=== PATIENT | male | born 1945 | race Caucasian/White ===

== ENCOUNTER → 2020-04-01 | Outpatient (CLI) | payer OTHER ==
--- NOTE | 2020-04-01 14:05 | RAD ---
EXAM: CT Head without IV contrast INDICATION: Reason: HEADACHE / Spl. Instructions: / History: TECHNIQUE: Multi-detector row CT images were obtained of the head without the use of IV contrast. All CT scans performed at this facility utilize dose optimization techniques as appropriate to the exam, including the following: Automated exposure control and adjustment of the mA and/or KV according to patient size (this includes techniques or standardized protocols for targeted exams where dose is indication/reason for exam). COMPARISON: None FINDINGS: BRAIN PARENCHYMA: No evidence of acute intraparenchymal hemorrhage or mass effect. There is loss of diana-white differentiation in the posterior insula, and in the right right temporal lobe extending posteriorly into the right parietal lobe, associated with low density compatible with an acute to subacute infarct. This measures 5 cm anterior-posterior, 4.9 cm craniocaudal and 3.8 cm mediolateral. There is scattered white matter low density compatible chronic ischemic microvascular change and mild parenchymal volume loss. VENTRICLES & EXTRA-AXIAL SPACES: Ventricles are within normal limits. Basilar cisterns are patent. No pathologic extra-axial fluid collection or mass. ORBITS: Orbital contents are unremarkable. SINUSES: Visualized paranasal sinuses and mastoid air cells are clear. OSSEOUS & SOFT TISSUES: Calvarium and skull base are intact. 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 CT angiography of the head and neck could be pursued in further evaluation. Stroke center referral recommended. FOR INTERNAL CODING PURPOSES Critical result: Findings discussed with SRIDEVI MARROQUIN at 04/01/2020 1:58 PM. RESULT CODE: (C) Electronically signed by: Saundra Sylvester MD (04/01/2020 2:02 PM) [id number]
== END | disposition home or self-care (01) ==
LOC: CT 13:06
PROVIDERS: ATTEND Physician Assistant
DX: I63.89 Other cerebral infarction (principal)
CPT/HCPCS: 70450

== ENCOUNTER → 2021-11-02 | Outpatient (CLI) | payer OTHER ==
--- NOTE | 2021-11-02 15:11 | RAD ---
EXAMINATION: US DPLX VENOUS EXTREMITY LOWER RT, 11/02/2021 11:16 AM CLINICAL INDICATION: Right lower extremity redness and swelling, history of DVT and PE. COMPARISON: None Available. PROCEDURE: Multiple grayscale, color Doppler and spectral Doppler sonographic images of the right low er extremity were obtained. FINDINGS: There is no evidence of deep venous thrombosis in the right lower extremity. The right comm on femoral, femoral and popliteal veins are echolucent with normal flow on color Doppler imaging. The veins are fully compressible and show normal phasicity and reaction to augmentation. The calf veins are suboptimally visualized due to skin thickening and subcutaneous edema. IMPRESSION: No evidence of deep venous thrombosis in the right lower extremity. Suboptimal evaluation of calf veins due to skin thickening and subcutaneous edema. Electronically signed by: Florence Quinteros MD (11/02/2021 3:08 PM) [id number]
== END ==
LOC: US 11:11
PROVIDERS: ATTEND Nurse Practitioner Family
DX: R22.41 Localized swelling, mass and lump, right lower limb (principal); I26.99 Other pulmonary embolism without acute cor pulmonale; Z86.718 Personal history of other venous thrombosis and embolism
CPT/HCPCS: 93971

== ENCOUNTER 2021-11-05 15:04 | Emergency (ER) | payer OTHER ==
[~2021-11-05] VITALS: Ht 167.6 cm; Wt 150.0 kg
--- NOTE | 2021-11-05 15:19 | PHYS DOC ---
General Adult EDM: Chief Complaint: UPPER EXTREMITY SWELLING HPI: HPI: 76-year-old male [facility]. The patient recently had a fall and was evaluated including lower extremity ultrasounds. There were no acute findings. No DVT. The gagan ent is already on Coumadin. He presents today because the home health person came and noticed that his left forearm was more swollen and they wanted him to get an ultrasound, so he/she called an ambulance. Patient has no new symptoms or complaints. He has a PICC line for which she is getting multiple medications and he is not sure why. Review of Systems: Review of Systems: Constitutional: Denies fever or chills Eyes: Denies change in visual acuity HENT: Denies nasal congestion or sore throat Respiratory: Denies cough or shortness of breath Cardiovascular: Denies chest pain or edema GI: Denies abdominal pain, nausea, vomiting, bloody stools or diarrhea : Denies dysuria Musculoskeletal: Denies back pain or joint pain Integument: Denies rash Neurologic: Denies headache, focal weakness or sensory changes Endocrine: Denies polyuria or polydipsia Lymphatic: Denies swollen glands Psychiatric: Denies depression or anxiety Allergies: Allergies: Allergies Coded Allergies Type Severity Reaction Last Updated Verified Penicillins Allergy Unknown 11/05/21 Yes amoxicillin Allergy Unknown 11/05/21 Yes Physical Exam: PE: Constitutional: Well developed, well nourished, morbidly obese, no acute distress, non-toxic appearance. [] HENT: Normocephalic, atraumatic, bilateral external ears normal, oropharynx moist, no oral exudates, nose normal. [] Eyes: PERRLA, EOMI, conjunctiva normal, no discharge. [] Neck: Normal range of motion, no tenderness, supple, no stridor. [] Cardiovascular:Heart rate regular rhythm, no murmur [] Lungs & Thorax: Bilateral breath sounds clear to auscultation [] Abdomen: Bowel sounds normal, soft, no tenderness, no masses, no pulsatile masses. [] Skin: Multiple areas of ecchymosis on the upper and lower extremities bilaterally, PICC line right upper arm. [] Back: No tenderness, no CVA tenderness. [] Extremities: Left forearm with scattered ecchymosis, larger diameter than right [] Neurologic: Alert and oriented X 3, normal motor function, normal sensory functi on, no focal deficits noted. [] Psychologic: Affect normal, judgement normal, mood normal. [] EKG: EKG: [] Radiology/Procedures: Radiology/Procedures: [] Impressions: XR SHOULDER_LEFT 2+ VIEWS 11/05/2021 5:02 PM INDICATION: Left shoulder pain COMPARISON: None available. TECHNIQUE: 3 views of the left shoulder are provided. 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 No lucency surrounding the hardware. There is no acute fracture or dislocation. Joint spaces are maintained. Bone mineralization is within normal limits. Regional soft tissues are within normal limits. There is no soft tissue gas or osseous erosion. No radiopaque foreign body. Electronically signed by: Larissa Ojeda MD (11/05/2021 5:29 PM) [facility] DICTATED AND SIGNED BY: LARISSA OJEDA MD DATE: 11/05/211725 CC: CHANI GALINDO DO; NON,STAFF ~ Left upper Extremity Venous Doppler Ultrasound History: Reason: Recent fall, left forearm swelling / Spl. Instructions: / History: Comparison: None Procedure: Color flow, duplex, spectral analysis and 2D images are obtained with and without compression in the area of the deep and superficial venous structures of the upper , specifically the axillary, brachials, radial and ulnar deep veins and the superficial basilic and cephalic veins. Color Doppler and venous waveform analysis was also applied to the left jugular and subclavian vein. Findings: There is normal duplex flow, color flow and compressibility of all visualized vein segments. No evidence of deep venous thrombus is present. Impression: Normal venous Doppler ultrasound with no evidence of DVT. Electronically signed by: Tin Chavez III, MD (11/05/2021 5:10 PM) [facility] DICTATED AND SIGNED BY: TIN CHAVEZ III, MD DATE: 11/05/21 170 CC: CHANI GALINDO DO; NON,STAFF ~ Heart Score: C/O Chest Pain: N/A Risk Factors: Risk Factors: DM, Current or recent (<one month) smoker, HTN, HLP, family history of CAD, obesity. Risk Scores: Score 0 - 3: 2.5% MACE over next 6 weeks - Discharge Home Score 4 - 6: 20.3% MACE over next 6 weeks - Admit for Clinical Observation Score 7 - 10: 72.7% MACE over next 6 weeks - Early Invasive Strategies Course & Med Decision Making: Course & Med Decision Making Pertinent Labs and Imaging studies reviewed. (See chart for details) The patient's labs are essentially unremarkable. Ultrasound of the upper extremity is normal. X-ray of the shoulder does not show any disruption of his shoulder replacement. His INR is slightly supratherapeutic at 3.3. I have advised that he follow this up with his prescribing doctor. He will hold tonight's dose. He is stable for discharge at this time. [] Dragon Disclaimer: Dragon Disclaimer: This electronic medical record was generated, in whole or in part, using a voice recognition dictation system. Departure Departure: Impression: Primary Impression: Left arm swelling Disposition: HOME / SELF CARE / HOMELESS Condition: STABLE Referrals: NON,STAFF (PCP) Patient Instructions: Peripheral Edema CHANI GALINDO DO Nov 05, 2021 15:19
[2021-11-05 16:12] LABS: BASO % 0 % (0-3); EOS % 0 % (0-3); HEMOGLOBIN 15.3 g/dL (13.0-17.5); LYMPH # 0.3 x10^3/uL (1.0-4.8); LYMPH % 2 % (24-48); MEAN CORPUSCULAR HEMOGLOBIN 34 pg (25-35); MEAN CORPUSCULAR HGB CONC 34 g/dL (31-37); MEAN CORPUSCULAR VOLUME 99 fL (79-100); MONO # 0.6 x10^3/uL (0.0-1.1); MONO % 4 % (0-9); NEUT # 12.8 x10^3uL (1.8-7.7); NEUT % 94 % (31-73); PLATELET COUNT 181 x10^3/uL (140-400); RED BLOOD COUNT 4.55 x10^6/uL (4.30-5.70); RED CELL DISTRIBUTION WIDTH 16.6 % (11.5-14.5); WHITE BLOOD COUNT 13.7 x10^3/uL (4.0-11.0)
[2021-11-05 16:30] LABS: CALCIUM 8.6 mg/dL (8.5-10.1); CREATININE 0.9 mg/dL (0.7-1.3); GFR 82.3; POTASSIUM 4.2 mmol/L (3.5-5.1)
[2021-11-05 16:36] LABS: ALBUMIN 2.6 g/dL (3.4-5.0); ALBUMIN/GLOBULIN RATIO 0.8 (1.0-1.7); TOTAL BILIRUBIN 1.4 mg/dL (0.2-1.0); TOTAL PROTEIN 5.8 g/dL (6.4-8.2)
--- NOTE | 2021-11-05 17:13 | RAD ---
Left upper Extremity Venous Doppler Ultrasound History: Reason: Recent fall, left forearm swelling / Spl. Instructions: / History: Comparison: None Procedure: Color flow, duplex, spectral analysis and 2D images are obtained with and without compress ion in the area of the deep and superficial venous structures of the upper , specifically the axillar y, brachials, radial and ulnar deep veins and the superficial basilic and cephalic veins. Color Doppl er and venous waveform analysis was also applied to the left jugular and subclavian vein. Findings: There is normal duplex flow, color flow and compressibility of all visualized vein segments. No evide nce of deep venous thrombus is present. Impression: Normal venous Doppler ultrasound with no evidence of DVT. Electronically signed by: Alexander Mejia III, MD (11/05/2021 5:10 PM) [facility]
--- NOTE | 2021-11-05 17:32 | RAD ---
XR SHOULDER_LEFT 2+ VIEWS 11/05/2021 5:02 PM INDICATION: Left shoulder pain COMPARISON: None available. TECHNIQUE: 3 views of the left shoulder are provided. 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 No lucency surrounding the hardware. There is no a cute fracture or dislocation. Joint spaces are maintained. Bone mineralization is within normal limit s. Regional soft tissues are within normal limits. There is no soft tissue gas or osseous erosion. No radiopaque foreign body. Electronically signed by: Renee Gloria MD (11/05/2021 5:29 PM) [id number]
[2021-11-05 18:20] VITALS: BP 146/48
== END 2021-11-05 19:19 | disposition home or self-care (01) ==
LOC: ER 15:04
DX: S50.12XA Contusion of left forearm, initial encounter (principal); S80.12XA Contusion of left lower leg, initial encounter; S80.11XA Contusion of right lower leg, initial encounter; S40.021A Contusion of right upper arm, initial encounter; R22.32 Localized swelling, mass and lump, left upper limb; Z88.0 Allergy status to penicillin; Z88.1 Allergy status to other antibiotic agents; W18.39XA Other fall on same level, initial encounter; Y93.89 Activity, other specified; Y92.89 Other specified places as the place of occurrence of the external cause; Y99.8 Other external cause status
CPT/HCPCS: 36415; 73030; 80053; 85025; 85610; 85730; 93971; 99285